=== PATIENT | female | born 1995 | race Two or more races ===

== ENCOUNTER 2016-11-19 15:40 | Emergency (ER) | payer MEDICAID ==
[~2016-11-19] VITALS: Ht 154.9 cm; Wt 53.1 kg
--- NOTE | 2016-11-19 16:20 | Emergency Room Report ---
History of Present Illness General Chief Complaint: Toothache Source: Patient Present Illness HPI 20-year-old who presents the emergency department with pain and swelling of the lower jaw after having all 4 wisdom teeth extracted yesterday. Pt. reports awakening with moderate swelling to the cheeks bilaterally, and throbbing 7/10 in severity pain. pt. has taken both Kelso and Amoxicillin. Pt. states that the dentist originally told her there would not be any swelling, and after going back this afternoon was told some swelling is to be expected. pt. states that she does not feel confident with the information given from dentists office and wants a second opinion. pt. is afraid that there is infection. pt. reports minimal bleeding from extraction sites at this time. pt. states pain is localized to the bilateral cheeks/lower jaw. denies fevers, chills, or purulent d/c. Pt states she has not been using ice packs or applying cold compresses. Denies CP, Palpitations, LOC, AMS, dizziness, Changes in Vision, Sensation, paresthesias, or a sudden severe headache. Allergies: Coded Allergies: No Known Allergies (Unverified , 11/19/16) Patient History Past Medical History: see triage record Past Surgical History: none Pertinent Family History: none Last Menstrual Period: 10/26/16 Now: No Reviewed Nursing Documentation: PMH: Agreed, PSxH: Agreed Nursing Documentation-PMH Past Medical History: No Stated History Review of Systems All Other Systems: negative except mentioned in HPI Physical Exam Vital Signs Date Time Temp Pulse Resp B/P Pulse Ox O2 Delivery O2 Flow Rate FiO2 11/19/16 15:52 98.6 96 16 123/71 99 Room Air Sp02 EP Interpretation: reviewed, normal General Appearance: no apparent distress, alert, GCS 15, non-toxic Head: normocephalic, atraumatic, other - swelling noted to the lower jawline/ cheeks bilaterally. Eyes: bilateral eye PERRL, bilateral eye normal inspection ENT: hearing grossly normal, normal pharynx, no angioedema, normal voice, uvula midline, moist mucus membranes, other - moderate soft tissue swelling to the lower cheeks and lower jaw line bilaterally. swelling is proportional, no obvious increased in temperature, no purulent d/c noted, there are blood clots visualized in the extracted tooh sockets. No active bleeding noted. pt. able to open mouth 4 finger breaths. Neck: full range of motion, supple/symm/no masses Respiratory: chest non-tender, lungs clear, normal breath sounds, speaking full sentences Cardiovascular #1: regular rate, rhythm, no edema Musculoskeletal: back normal, gait/station normal, normal range of motion, non- tender, no calf tenderness Neurologic: alert, oriented x3, responsive, motor strength/tone normal, sensory intact, speech normal Psychiatric: judgement/insight normal, memory normal, mood/affect normal, no suicidal/homicidal ideation Skin: normal color, no rash, warm/dry, well hydrated, other - soft tissue swelling to the lower jaw/cheeks bilaterally - pls see ENT section for detail Lymphatic: no adenopathy Medical Decision Making PA Attestation Dr. Morejon is my supervising Physician whom patient management has been discussed with. Diagnostic Impression: Primary Impression: Soft tissue swelling Additional Impression: Status post wisdom tooth extraction ER Course 20-year-old who presents the emergency department with pain and swelling of the lower jaw after having all 4 wisdom teeth extracted yesterday. Pt. reports awakening with moderate swelling to the cheeks bilaterally, and throbbing 7/10 in severity pain. pt. has taken both Kelso and Amoxicillin. Ddx considered but are not limited to: Dry socket, tooth abscess, tooth avulsion, abscess Ludwigs angina, cellulitis, hemorrhage Vital signs: are WNL, pt. is afebrile H&PE are most consistent with: soft tissue swelling s/p wisdom tooth extraction , no evidence of infection at this time, the blood clots are visualized in the sockets, there is no active bleeding at this time. ORDERS: None required at this time as the diagnosis is clinical ED INTERVENTIONS: -40mg IM Toradol - Pt is given ICE packs --upon re-evaluation pt. states pain has minimized. Pt states she will continue ice packs at home. Given that the extractions were recently performed yesterday , swelling is to be expected, the pt. is currently on oral antibiotics, and pt. has had improvement with ED interventions, I feel pt. is stable for close outpatient follow up. Pt. is instructed to continue anti-inflammatory medication and cold compresses. Pt is instructed to return promptly to the ED with worsening or new symptoms. DISCHARGE: At this time pt. is stable for d/c to home. Will provide printed patient care instructions, and any necessary prescriptions. Care plan and follow up instructions have been discussed with the patient prior to discharge. Last Vital Signs Date Time Temp Pulse Resp B/P Pulse Ox O2 Delivery O2 Flow Rate FiO2 11/19/16 15:52 98.6 96 16 123/71 99 Room Air Disposition: HOME, SELF-CARE Condition: Stable Scripts Ibuprofen* (MOTRIN*) 600 Mg Tablet 600 MG ORAL THREE TIMES A DAY, #30 TAB 0 Refills Prov: Racquel Talley 11/19/16 Departure Forms: Return to Work Return to Work Date: Nov 24, 2016 Work Restrictions: None Return to Full Activity: Nov 24, 2016 Patient Instructions: Dental Pain Additional Instructions: Take medications as directed. Follow up with PCP in 3-5 days Return sooner to ED if new symptoms occur, or current symptoms become worse. Racquel Talley Nov 19, 2016 16:20
[2016-11-19] MEDS ORDERED: IBUPROFEN600 MG ORAL (16:29)
[2016-11-19] MEDS ORDERED: Ketorolac 60mg Inj IM ONE (16:30)
[2016-11-19 17:03] VITALS: BP 127/74
[2016-11-19 17:04] VITALS: BP 127/74
[2016-11-20] MEDS ORDERED: CLINDAMYCIN HC300 MG ORAL (01:30)
== END 2016-11-19 17:29 | disposition home or self-care (01) ==
LOC: EMR 16:30
DX: R60.0 Localized edema (principal)
CPT/HCPCS: 96372; 99284

== ENCOUNTER 2016-11-19 21:35 | Emergency (ER) | payer MEDICAID ==
[~2016-11-19] VITALS: Ht 154.9 cm; Wt 53.1 kg
[~2016-11-19 21:35] MED LIST: IBUPROFEN600 MG ORAL
[2016-11-19] MEDS ORDERED: HYDROmorphone 1mg/ml Carpuject IVP ONE (22:30)
[2016-11-19] MEDS ORDERED: Ampicillin/Sulbactam Sod 3 GM in NS 110 ML IVPB ONE (22:30)
[2016-11-19] MEDS ORDERED: Unasyn 3gm Inj ONE (22:33)
[2016-11-19 22:57] LABS: MEAN CORPUSCULAR HEMOGLOBIN 30.1 PG (27.0-31.0); MEAN CORPUSCULAR HGB CONC 34.2 G/DL (32.0-36.0); MEAN CORPUSCULAR VOLUME 88 FL (80-99); MEAN PLATELET VOLUME 7.5 FL (6.5-10.1); PLATELET COUNT 181 K/UL (150-450); RED BLOOD COUNT 4.46 M/UL (4.20-5.40); RED CELL DISTRIBUTION WIDTH 11.7 % (11.6-14.8); WHITE BLOOD COUNT 9.1 K/UL (4.8-10.8)
[2016-11-19 23:07] LABS: INR 1.1 (0.9-1.1); PROTHROMBIN TIME 11.2 SEC (9.30-11.50)
[2016-11-19 23:10] LABS: ANION GAP 18 (5-15); CALCIUM 9.8 mg/dL (8.6-10.2); CARBON DIOXIDE 22 mEQ/L (20-30); CHLORIDE 97 mEQ/L (98-107); CREATININE 0.9 mg/dL (0.5-0.9); GLOMERULAR FILTRATION RATE > 60 mL/min (>60); HEMOLYSIS 4; SODIUM 137 mEQ/L (135-145)
[2016-11-20] LABS: APPEARANCE,URINE CLEAR; KETONES,URINE 4+ (NEGATIVE); LEUKOCYTE ESTERASE ,URINE NEGATIVE (NEGATIVE); NITRITE,URINE NEGATIVE (NEGATIVE); PH,URINE 5 (4.5-8.0); PROTEIN,URINE 2+ (NEGATIVE); UROBILINOGEN,URINE NORMAL MG/DL (0.0-1.0)
[2016-11-20 00:12] LABS: BACTERIA,URINE FEW /HPF; SQUAMOUS EPITHELIAL CELL,UR MANY /LPF (NONE/OCC); WBC,URINE 0-2 /HPF (0 - 2)
--- NOTE | 2016-11-20 01:27 | Emergency Room Report ---
History of Present Illness General Chief Complaint: Pain Source: Patient Present Illness HPI Is a 20-year-old female who had 4 wisdom teeth extracted yesterday. Right afterward her face swell up. She felt she couldn't breathe so that's why she came here. She came here 3 hours before hand. Reading was control and she was sent home. She came back because she is more bleeding and swelling on the right side appear to be worse. No fever or chills. No nausea no vomiting. She is taking amoxicillin. She's not taking any aspirin. She doesn't say that her menstrual period is heavy. No trauma. Allergies: Coded Allergies: No Known Allergies (Unverified , 11/19/16) Patient History Past Medical History: see triage record, old chart reviewed Past Surgical History: other Pertinent Family History: other Social History: Denies: smoking Last Menstrual Period: 10/26/16 Now: No Immunizations: other Reviewed Nursing Documentation: PMH: Agreed, PSxH: Agreed Nursing Documentation-PMH Past Medical History: No Stated History Review of Systems Eye: Denies: blurred vision, eye pain ENT: Denies: ear pain, nose congestion, throat swelling Respiratory: Denies: cough, shortness of breath Cardiovascular: Denies: chest pain, palpitations Gastrointestinal: Denies: abdominal pain, diarrhea, nausea, vomiting Musculoskeletal: Denies: back pain, joint pain Skin: Denies: rash Neurological: Denies: headache, numbness Endocrine: Denies: increased thirst, increased urine Hematologic/Lymphatic: Denies: easy bruising All Other Systems: negative except mentioned in HPI Physical Exam Vital Signs Date Time Temp Pulse Resp B/P Pulse Ox O2 Delivery O2 Flow Rate FiO2 11/19/16 21:52 98.6 90 16 120/64 100 Room Air vitals normal. Sp02 EP Interpretation: reviewed, normal General Appearance: well appearing, no apparent distress, alert Head: normocephalic, atraumatic Eyes: bilateral eye EOMI, bilateral eye PERRL ENT: normal pharynx, other - oozing of blood from right upper wisdom tooth site. no pus. Fullness to b/l cheek. no redness. no fluctuance. Neck: full range of motion, supple, no meningismus Respiratory: chest non-tender, lungs clear, normal breath sounds Cardiovascular #1: regular rate, rhythm, no murmur Gastrointestinal: normal bowel sounds, non tender, no mass, no organomegaly, no bruit, non-distended Musculoskeletal: back normal, gait/station normal, normal range of motion Psychiatric: mood/affect normal Skin: warm/dry Medical Decision Making Diagnostic Impression: Primary Impression: Post-op bleeding Qualified Codes: L76.22 - Postprocedural hemorrhage of skin and subcutaneous tissue following other procedure Additional Impression: Post-op pain ER Course Patient presents with postoperative bleeding. Per family, she had 4 wisdom teeth removed and it was done within 21 minutes. Swelling may be trauma related. Maybe bleeding. It has been 24 hours so infection unlikely area. With pressure bleeding is controlled. No abscess noted on the CT scan. I discussed this with the radiologist. I also discussed the oromaxillary surgeon at [facility]. He recommended CT scan. If things worsen, she can go to [facility] are at [facility] where there is an oral surgical residency. Patient improved here. No active bleeding. No increased swelling. I gave her a dose of IV antibiotics. We'll discharge home with close followup. Lab Results Impression labs normal CT/MRI/US Diagnostic Results CT/MRI/US Diagnostic Results : Imaging Test Ordered: CT facial Impression Read by radiologist. Soft tissue swelling b/l. Last Vital Signs Date Time Temp Pulse Resp B/P Pulse Ox O2 Delivery O2 Flow Rate FiO2 11/19/16 21:52 98.6 90 16 120/64 100 Room Air Status: improved Disposition: HOME, SELF-CARE Condition: Stable Scripts Clindamycin Hcl (CLINDAMYCIN HCL) 300 Mg Capsule 300 MG ORAL THREE TIMES A DAY, #21 CAP Prov: FLOR MORE M.D. 11/20/16 Referrals: [facility],REFERRING (PCP) Additional Instructions: Followup your dentist IRENE. Return if symptom worsen. Increase swelling and bleeding, followup with oral surgeon at [facility] or [facility]. FLOR MORE M.D. Nov 20, 2016 01:27
[2016-11-20] MEDS ORDERED: CLINDAMYCIN HC300 MG ORAL (01:30)
[2016-11-20 01:44] VITALS: BP 122/68
[2016-11-20 01:45] VITALS: BP 122/68
--- NOTE | 2016-11-20 09:57 | Diagnostic Imaging Report ---
Indications: Swelling and pain Technique: IV administration nonionic contrast. Spiral acquisition obtained through the facial bones. No IV contrast utilized. Multiplanar reconstructions were generated.Total dose length product 585 mGycm. CTDIvol(s) 28mGy Comparison: The Findings: There is considerable image degradation due to streak artifact from dental amalgam, which could obscure pathology. There is extensive bilateral malar soft tissue swelling, predominantly involving the subcutaneous fat and also possibly involving the buccal musculature. Gas bubbles are seen within the malar subcutaneous fat late and possibly within the right buccal musculature, as well as within the soft tissues superficial to the anterolateral animal bilaterally. There lucencies of the alveolar ridges of the maxilla bilaterally, adjacent to the posterior molars. There are also lucency of the anterior superior mandibular angles bilaterally, adjacent to the most posterior molars. No definite focal fluid collections to suggest renal abscess are demonstrated. The sinuses are clear. The orbits and optic globes are unremarkable. The visualized intracranial structures are unremarkable. Impression: Extensive bilateral facial soft tissue swelling, consistent with cellulitis. Fairly extensive gas bubbles, as described, worrisome for infection with gas-forming organism. Lucent regions in the bilateral maxillary alveolar ridges and bilateral mandibles. Per the preliminary report, there is history of recent dental extraction, probably the etiology of this finding No definite focal fluid collections to suggest abscess demonstrated. This agrees with the preliminary interpretation provided overnight by [facility] teleradiology service. The CT scanner at [facility] is accredited by the [employer] and the scans are performed using protocols designed to limit radiation exposure to as low as reasonably achievable to attain images of sufficient resolution adequate for diagnostic evaluation.
== END 2016-11-20 01:46 | disposition home or self-care (01) ==
LOC: EMR 22:15
DX: L76.22 Postprocedural hemorrhage of skin and subcutaneous tissue following other procedure (principal)
CPT/HCPCS: 36415; 70488; 80048; 81003; 81025; 85025; 85610; 85730; 99284; J0295; J1170; J2405; Q9967

== ENCOUNTER 2016-11-24 23:07 | Emergency (ER) | payer MEDICAID ==
[~2016-11-24] VITALS: Ht 154.9 cm; Wt 49.9 kg
[~2016-11-24 23:07] MED LIST changes: +CLINDAMYCIN HC300 MG ORAL
[2016-11-25] MEDS ORDERED: HYDROCODON-ACE1 EA15 ORAL (00:03)
--- NOTE | 2016-11-25 00:03 | Emergency Room Report ---
History of Present Illness General Chief Complaint: Eye Problems Source: Patient Present Illness HPI Is a 20-year-old female who had recent or wisdom teeth extraction. Her face swell up afterward. She had some bleeding. She was seen here and CT scan showed edema but no abscess. I switch her to clindamycin. That improved greatly. Swelling is much better. Today she had swelling of her left eyelid. Is back to normal now. She was concerned that it may be related. No other complaint. No fever or chills. No nausea no vomiting. Allergies: Coded Allergies: No Known Allergies (Unverified , 11/19/16) Patient History Past Medical History: see triage record, old chart reviewed Pertinent Family History: none Social History: Denies: smoking Last Menstrual Period: Oct 26 Now: No : 0 Para: 0 Immunizations: other Nursing Documentation-[facility] Past Medical History: No Stated History Review of Systems Eye: Denies: blurred vision, eye pain ENT: Denies: ear pain, nose congestion, throat swelling Respiratory: Denies: cough, shortness of breath Cardiovascular: Denies: chest pain, palpitations Gastrointestinal: Denies: abdominal pain, diarrhea, nausea, vomiting Musculoskeletal: Denies: back pain, joint pain Skin: Denies: rash Neurological: Denies: headache, numbness Endocrine: Denies: increased thirst, increased urine Hematologic/Lymphatic: Denies: easy bruising All Other Systems: negative except mentioned in HPI Physical Exam Vital Signs Date Time Temp Pulse Resp B/P Pulse Ox O2 Delivery O2 Flow Rate FiO2 11/24/16 23:15 98.2 64 18 127/80 99 Room Air vitals normal Sp02 EP Interpretation: reviewed, normal General Appearance: well appearing, no apparent distress, alert Head: normocephalic, atraumatic Eyes: bilateral eye EOMI, bilateral eye PERRL ENT: hearing grossly normal, normal pharynx, other - Swelling Significantly better Neck: full range of motion, supple, no meningismus Respiratory: chest non-tender, lungs clear, normal breath sounds Cardiovascular #1: regular rate, rhythm, no murmur Gastrointestinal: normal bowel sounds, non tender, no mass, no organomegaly, no bruit, non-distended Musculoskeletal: back normal, gait/station normal, normal range of motion Psychiatric: mood/affect normal Skin: warm/dry Medical Decision Making Diagnostic Impression: Primary Impression: Edema of left eyelid Additional Impression: Visit for wound check ER Course Patient with transient edema of the left eyelid. This may be secondary to air in the soft tissue. That resolved. Her dental edema is much improved. We'll discharge him with pain medication. No evidence of infection or necrotizing fasciitis. Last Vital Signs Date Time Temp Pulse Resp B/P Pulse Ox O2 Delivery O2 Flow Rate FiO2 11/24/16 23:15 98.2 64 18 127/80 99 Room Air Status: improved Disposition: HOME, SELF-CARE Condition: Stable Scripts Hydrocodone/Acetaminophen 5-325* (HYDROCODONE/ACETAMINOPHEN 5-325*) 1 Each Tablet 1 TAB ORAL Q6H Y for For Pain, #20 TAB 0 Refills Prov: FLOR MORE M.D. 11/25/16 Referrals: [facility],REFERRING (PCP) FLOR MORE M.D. Nov 25, 2016 00:03
[2016-11-25 00:12] VITALS: BP 127/80
== END 2016-11-25 00:14 | disposition home or self-care (01) ==
LOC: EMR 23:34
DX: H02.846 Edema of left eye, unspecified eyelid (principal); Z48.01 Encounter for change or removal of surgical wound dressing
CPT/HCPCS: 99283

== ENCOUNTER 2016-11-30 13:30 | Emergency (ER) | payer MEDICAID ==
[~2016-11-30] VITALS: Ht 154.9 cm; Wt 52.2 kg
[~2016-11-30 13:30] MED LIST changes: +HYDROCODON-ACE1 EA15 ORAL
[2016-11-30] MEDS ORDERED: NYSTATIN100000 UN1 ORAL (14:02)
--- NOTE | 2016-11-30 14:08 | Emergency Room Report ---
History of Present Illness General Chief Complaint: General Complaint Source: Patient Present Illness HPI Patient is a 21-year-old female who presented after increased white plaques to her mouth. Patient was recently seen in the hospital after he was acute infection and was given a prescription for antibiotics. Patient subsequently developed is discoloration to her tongue. The patient denied any severe pain. She denied having any fevers. She been able to swallow fluids okay. She had not been vomiting or having diarrhea Allergies: Coded Allergies: No Known Allergies (Unverified , 11/19/16) Patient History Past Medical History: see triage record Last Menstrual Period: 10/26/16 Now: No : 0 Reviewed Nursing Documentation: PMH: Agreed, PSxH: Agreed Nursing Documentation-PMH Past Medical History: No Stated History Review of Systems All Other Systems: negative except mentioned in HPI Physical Exam Vital Signs Date Time Temp Pulse Resp B/P Pulse Ox O2 Delivery O2 Flow Rate FiO2 11/30/16 13:50 98.2 82 18 116/68 99 Room Air General Appearance: well appearing, no apparent distress, alert, GCS 15 Head: normocephalic, atraumatic ENT: hearing grossly normal, normal voice, other - white patch to tongue, minimal pharyngeal erythema Neck: full range of motion, supple Respiratory: no respiratory distress, speaking full sentences Musculoskeletal: no calf tenderness Neurologic: normal gait Psychiatric: mood/affect normal Skin: no rash Medical Decision Making Diagnostic Impression: Primary Impression: Oral thrush ER Course Patient presented for sore throat. Differential diagnosis included but was not limited to meningitis, exudative tonsillitis, retropharyngeal abscess, epiglottitis, strep pharyngitis, thrush. The patient presents with plaques consistent with some mild thrush due to antibiotic use. Patient was given prescription for nystatin.The patient is advised to follow up with primary care doctor in 1-2 days. Patient is advised to return if any worsening condition or if any changes in status that are concerning. Last Vital Signs Date Time Temp Pulse Resp B/P Pulse Ox O2 Delivery O2 Flow Rate FiO2 11/30/16 13:50 98.2 82 18 116/68 99 Room Air Status: improved Disposition: HOME, SELF-CARE Condition: Stable Scripts Nystatin* (NYSTATIN*) 100,000 Unit/1 Ml Oral.susp 5 ML ORAL FOUR TIMES A DAY for 7 Days, #140 ML Swish in the mouth and retain for as long as possible (several minutes) before swallowing Prov: Nik Pizarro 11/30/16 Patient Instructions: Thrush, Adult Nik Pizarro Nov 30, 2016 14:08
[2016-11-30 15:02] VITALS: BP 116/68
[2016-11-30 15:11] VITALS: BP 116/68
== END 2016-11-30 14:30 | disposition home or self-care (01) ==
LOC: EMR 14:22
DX: B37.0 Candidal stomatitis (principal)
CPT/HCPCS: 99283

== ENCOUNTER 2018-04-29 13:41 | Emergency (ER) | payer MEDICAID, OTHER ==
[~2018-04-29] VITALS: Ht 154.9 cm; Wt 53.1 kg
[~2018-04-29 13:41] MED LIST changes: +NYSTATIN100000 UN1 ORAL
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
[2018-04-29] MEDS ORDERED: TYLENOL EXTRA500 MG ORAL (14:31)
[2018-04-29] MEDS ORDERED: LIDODERM700 M1 TOPIC (14:31)
[2018-04-29] MEDS ORDERED: ROBAXIN500 MG PO (14:31)
[2018-04-29 14:35] VITALS: BP 114/80
[2018-04-29 14:58] VITALS: BP 114/80
== END 2018-04-29 14:58 | disposition home or self-care (01) ==
LOC: EMR 14:07
DX: S50.12XA Contusion of left forearm, initial encounter (principal); S90.02XA Contusion of left ankle, initial encounter; S93.402A Sprain of unspecified ligament of left ankle, initial encounter; M62.830 Muscle spasm of back; V43.62XA Car passenger injured in collision with other type car in traffic accident, initial encounter; Y92.410 Unspecified street and highway as the place of occurrence of the external cause
CPT/HCPCS: 99284